=== PATIENT | female | born 1980 | race Caucasian/White ===

== ENCOUNTER → 2018-07-08 | Outpatient (REF) | payer OTHER | LOC: M LAB REF 12:19 | DX: R10.815 Periumbilic abdominal tenderness (principal) | CPT/HCPCS: 87086 ==

== ENCOUNTER → 2020-06-21 | Outpatient (CLI) | payer OTHER ==
[2020-06-21 12:55] LABS: HEPATITIS B SURFACE ANTIBODY NEGATIVE (POSITIVE)
[2020-06-21 13:26] LABS: ALT/SGPT 112 U/L (12-78); BILIRUBIN,DIRECT 0.2 MG/DL (0.0-0.2); BILIRUBIN,TOTAL 0.7 MG/DL (0.2-1.0); CHOLESTEROL LEVEL 227 MG/DL (<200); CHOLESTEROL RISK RATIO 2.873 (<5); HDL CHOLESTEROL 79 MG/DL (>40); IRON (FE) 133 UG/DL (50-170); LDL CHOLESTEROL 128 MG/DL (<100); NON-HDL-C 148 MG/DL; PERCENT SATURATION 38.4 % (13.2-45.0); TOTAL IRON BINDING CAPACITY 346 UG/DL (250-450); TOTAL PROTEIN 7.6 GM/DL (6.4-8.2); TRIGLYCERIDES LEVEL 102 MG/DL (<150)
[2020-06-22 17:07] LABS: ANTI-MITOCHONDRIAL ANTIBODY <20.0 Units (0.0-20.0); ANTI-SMOOTH MUSCLE ANTIBODY 2 Units (0-19); ANTINUCLEAR ANTIBODIES DIRECT Negative (Negative); HEPATITIS A IgG TOTAL Negative (Negative); LIVER-KIDNEY MICROSOMAL ABY <20.1 Units (0.0-20.0)
== END ==
LOC: M LAB 11:36
PROVIDERS: ATTEND Internal Medicine Gastroenterology
DX: R94.5 Abnormal results of liver function studies (principal)